=== PATIENT | female | born 1980 ===

== ENCOUNTER 2017-01-15 20:36 | Emergency (ER) | payer OTHER ==
[2017-01-15 21:26] VITALS: RESP 16; O2SAT 100
[2017-01-15 21:58] LABS: SQUAMOUS EPITHIAL 3 /hpf (0-5); URINE BACTERIA RARE (<OCC); URINE BILIRUBIN NEGATIVE (NEGATIVE); URINE BLOOD NEGATIVE (NEGATIVE); URINE CLARITY Clear (Clear); URINE COLOR Yellow (YELLOW); URINE GLUCOSE (UA) NORMAL (Normal); URINE LEUKOCYTE ESTERASE NEG Leu/uL (Negative); URINE NITRATE NEGATIVE (NEGATIVE); URINE PROTEIN NEGATIVE (NEGATIVE); URINE UROBILINOGEN NORMAL mg/dL (0.2-1.0)
--- NOTE | 2017-01-15 22:28 | C.PDOC ---
History Of Present Illness 36 y/o female presents to the ED for evaluation of right-sided lower back pain which has been radiating to her right hip intermittently for around 1 month. Patient states she usually experiences these symptoms along with her menstrual cramps. She notes her symptoms usually improves once her menses ends. However, she notes her symptoms have continued this time and presents to the ED for further evaluation. Patient also complains of intermittent headaches, but denies headache currently. Patient also denies abdominal pain, dysuria, hematuria, urinary/bowel incontinence, or direct trauma/injury to the affected area. Time Seen by Provider: 01/15/17 21:46 Chief Complaint (Nursing): Back Pain History Per: Patient History/Exam Limitations: no limitations Onset/Duration Of Symptoms: Intermittent Episodes (1 month ) Current Symptoms Are (Timing): Still Present Quality Of Discomfort: "Pain" Previous Symptoms: Back Pain (right-sided, lower ) Associated Symptoms: denies: Incontinence, New Weakness, New Numbness Additional History Per: Patient Past Medical History Reviewed: Historical Data, Nursing Documentation, Vital Signs Vital Signs: Last Vital Signs Temp 97.6 F 01/15/17 22:41 Pulse 57 L 01/15/17 22:41 Resp 16 01/15/17 22:41 BP 110/74 01/15/17 22:41 Pulse Ox 100 01/16/17 03:29 - Medical History PMH: No Chronic Diseases Surgical History: No Surg Hx Family History: States: Unknown Family Hx - Social History Hx Alcohol Use: Yes Hx Substance Use: No - Immunization History Hx Tetanus Toxoid Vaccination: No Hx Influenza Vaccination: No Hx Pneumococcal Vaccination: No Review Of Systems Except As Marked, All Systems Reviewed And Found Negative. Gastrointestinal: Negative for: Abdominal Pain Genitourinary: Negative for: Dysuria, Hematuria Musculoskeletal: Positive for: Back Pain (right-sided, lower ) Neurological: Positive for: Headache. Negative for: Weakness, Numbness Physical Exam - Physical Exam Appears: Non-toxic, No Acute Distress Skin: Normal Color, Warm, Dry Head: Atraumatic, Normacephalic Eye(s): bilateral: Normal Inspection Oral Mucosa: Moist Neck: Supple Back: Paraspinal Tenderness (right-sided paralumbar ), No Straight Leg Raising Extremity: Normal ROM, Capillary Refill (less than 2 seconds ) Neurological/Psych: Oriented x3, Normal Speech, Normal Cognition, Normal Motor, Normal Sensation Gait: Steady ED Course And Treatment O2 Sat by Pulse Oximetry: 100 (on RA) Pulse Ox Interpretation: Normal Progress Note: UA ordered and reviewed. Patient received Motrin PO. On reassessment, pt is resting comfortably, showing no signs of distress and reports an improvement in her symptoms. Patient is ambulatory in the ED without distress and is stable for discharge. Patient is advised to follow up with her [facility] within 1-2 days for further evaluation. Disposition Counseled Patient/Family Regarding: Diagnosis, Need For Followup, Rx Given - Disposition Referrals: Clint Amato [Staff Provider] - [facility] [Outside] Disposition: HOME/ ROUTINE Disposition Time: 22:25 Condition: STABLE Additional Instructions: Take motrin as needed for pain Follow up with your OB/ [facility] or with our [facility] Return to ER if worse Prescriptions: Ibuprofen [Motrin] 600 mg PO Q6H #30 tab Instructions: Acute Low Back Pain (ED) - Clinical Impression Clinical Impression: Low back pain - PA / [employer] / Resident Statement MD/DO has reviewed & agrees with the documentation as recorded. - Scribe Statement The provider has reviewed the documentation as recorded by the Scribe (Betsy Kelley) All medical record entries made by the Scribe were at my direction and personally dictated by me. I have reviewed the chart and agree that the record accurately reflects my personal performance of the history, physical exam, medical decision making, and the department course for this patient. I have also personally directed, reviewed, and agree with the discharge instructions and disposition.
[2017-01-15 22:42] VITALS: BP 110/74; PULSE 57; TEMP 97.6
== END 2017-01-15 22:43 | disposition home or self-care (01) ==
LOC: C.ER 20:36
DX: M54.5 Low back pain (principal)